=== PATIENT | female | born 1965 | race Caucasian/White ===

== ENCOUNTER 2017-05-20 16:16 | Inpatient (IN) | payer BC, SELFPAY ==
[2017-05-20] MEDS ORDERED: Midazolam HCl 5 mg/ml Vial ONE (16:47)
[2017-05-20] MEDS ORDERED: levETIRAcetam In NaCl (Iso-Os) 1,000 MG in Premix Bag 1 BAG IVPB ONE ×2 (17:15)
[2017-05-20 17:18] LABS: #Eosinphils 0.1 thou/uL (0.0-0.7); #Lymphocytes 3.1 thou/uL (1.20-3.40); #Monocytes 1.1 thou/uL (0.11-0.59); #Neutrophils 9.3 thou/uL (1.40-6.50); %Basophils 0.3 % (0.0-1.0); %Eosinophils 0.9 % (0.0-10.0); %Lymphocytes 22.9 % (21.0-51.0); %Monocytes 7.7 % (0.0-10.0); Hematocrit 42.1 % (36.0-47.0); Mean Platelet Volume 6.6 fL (7.4-10.4); Red Blood Cell (RBC) Count 4.71 mill/uL (4.20-5.40); White Blood Cell (WBC) Count 13.7 thou/uL (4.8-10.8)
[2017-05-20 17:42] LABS: ALT (SGPT) 18 U/L (8-55); AST (SGOT) 22 U/L (5-34); Alkaline Phosphatase 85 U/L (40-150); Anion Gap 24 mmol/L (10-20); BUN (Urea Nitrogen) 24 mg/dL (7.0-18.7); Bilirubin, Total 0.4 mg/dL (0.2-1.2); Calc. Creatinine Clearance 0 mL/min (70-130); Calcium 9.7 mg/dL (7.8-10.44); Carbon Dioxide 13 mmol/L (22-29); Chloride 94 mmol/L (98-107); Estimated GFR-MDRD 77; Globulin 3.5 g/dL (2.4-3.5); Lipase 27 U/L (8-78); Magnesium 2.1 mg/dL (1.6-2.6); Protein, Total 7.9 g/dL (6.0-8.3)
--- NOTE | 2017-05-20 17:46 | RAD ---
AP VIEW OF THE CHEST: 05/20/17 INDICATION: History of fall after a seizure. COMPARISON: None. FINDINGS: Lungs are clear. No pleural effusion or pneumothorax is evident. No acute osseous abnormality is pierre dent. IMPRESSION: No acute cardiopulmonary abnormality. POS: [facility]
[2017-05-20 17:47] LABS: Troponin I Less than 0.010 ng/mL (< 0.028)
--- NOTE | 2017-05-20 17:57 | CT ---
NONCONTRAST CT OF THE BRAIN: 05/20/17 INDICATION: History of seizures. COMPARISON: None. FINDINGS: No acute infarct, hemorrhage, or hydrocephalus present. Skull and extracranial soft tissues are with in normal limits. No midline shift is evident. IMPRESSION: No acute intracranial abnormality. POS: [facility]
[2017-05-20] MEDS ORDERED: Magnesium Sulfate 2 GM/100 ML BAG ONE (18:17)
[2017-05-20 18:20] LABS: Anion Gap 20 mmol/L (10-20); BUN (Urea Nitrogen) 24 mg/dL (7.0-18.7); Calc. Creatinine Clearance 0 mL/min (70-130); Calcium 9.6 mg/dL (7.8-10.44); Carbon Dioxide 18 mmol/L (22-29); Chloride 95 mmol/L (98-107); Estimated GFR-MDRD 89
[2017-05-20] MEDS ORDERED: Ketorolac Tromethamine 30 MG/ML VIAL ONE (18:46)
[2017-05-20] MEDS ORDERED: Diazepam 10 MG/2 ML SYRINGE ONE (18:46)
[2017-05-20 19:02] LABS: Bilirubin Negative (Negative); Blood, Urine Small (Negative); Glucose, Urine (Dipstick) Negative (Negative); Ketone, Urine Negative (Negative); Nitrite Negative (Negative); Protein, Urine (Dipstick) Negative (Neg-Trace); Urobilinogen 0.2 mg/dL (0.2-1.0)
[2017-05-20 19:13] LABS: Bacteria/HPF None Seen HPF (None Seen); Hyaline Casts/LPF 0-3 HYALINE CAST LPF (0-3 Hyaline); RBC/HPF 0-3 HPF (0-3); Squamous Epithelial 0-3 HPF (0-3); WBC/HPF 0-3 HPF (0-3)
[2017-05-20 19:25] LABS: Amphetamine Not Detected (NotDetected); Methadone Not Detected (NotDetected); Methamphetamine Not Detected (NotDetected)
[2017-05-20] MEDS ORDERED: Diazepam 10 MG/2 ML SYRINGE IVP PRN (19:59)
[2017-05-20 20:20] VITALS: BMI 18.7
[2017-05-20] MEDS ORDERED: traZODone HCl 150 MG TAB PO PRN (21:41)
[2017-05-20] MEDS ORDERED: Lorazepam 2 MG/ML VIAL SLOW IVP PRN (21:41)
[2017-05-20] MEDS ORDERED: cloNIDine HCl 0.1 MG TAB PO PRN (21:41)
[2017-05-20] MEDS ORDERED: Ondansetron HCl/PF 4 MG/2 ML Vial IVP PRN (21:41)
[2017-05-20] MEDS ORDERED: Acetaminophen 500 MG TAB PO PRN (21:41)
[2017-05-20] MEDS ORDERED: Ondansetron ODT 4 MG TAB PO PRN (21:41)
[2017-05-20] MEDS: Sodium Chloride 0.9% 1,000 ML IV SCH (22:26)
[2017-05-20] MEDS: traMADol HCl 50 MG TAB PO PRN (22:26)
[2017-05-20] MEDS: Ibuprofen 600 MG TAB PO PRN (22:28)
[2017-05-20] MEDS: Lorazepam 1 MG TAB PO SCH (22:30)
[2017-05-21] MEDS ORDERED: Sodium Chloride 0.9% 500 ML IV SCH (00:30)
[2017-05-21] MEDS: Lorazepam 1 MG TAB PO SCH ×5 (04:13→20:16)
[2017-05-21] MEDS: Ibuprofen 600 MG TAB PO PRN (04:14)
[2017-05-21] MEDS: traMADol HCl 50 MG TAB PO PRN (04:17)
[2017-05-21] MEDS: Sodium Chloride 0.9% 1,000 ML IV SCH ×3 (04:18→14:07)
[2017-05-21 05:16] LABS: ALT (SGPT) 15 U/L (8-55); AST (SGOT) 16 U/L (5-34); Alkaline Phosphatase 71 U/L (40-150); Anion Gap 12 mmol/L (10-20); BUN (Urea Nitrogen) 12 mg/dL (7.0-18.7); Bilirubin, Total 0.6 mg/dL (0.2-1.2); Calc. Creatinine Clearance 74 mL/min (70-130); Calcium 8.5 mg/dL (7.8-10.44); Carbon Dioxide 24 mmol/L (22-29); Chloride 105 mmol/L (98-107); Estimated GFR-MDRD Greater than 90; Globulin 2.6 g/dL (2.4-3.5); Magnesium 2.5 mg/dL (1.6-2.6); Protein, Total 6.4 g/dL (6.0-8.3)
[2017-05-21 05:24] LABS: Hematocrit 37.7 % (36.0-47.0); Mean Platelet Volume 6.5 fL (7.4-10.4); Neutrophil 78 % (42-75); Red Blood Cell (RBC) Count 4.22 mill/uL (4.20-5.40); White Blood Cell (WBC) Count 12.4 thou/uL (4.8-10.8)
--- NOTE | 2017-05-21 05:51 | HP ---
DATE OF ADMISSION: 05/20/2017 PRIMARY CARE PHYSICIAN: Lurdes Rueda MD CHIEF COMPLAINT: Seizures. HISTORY OF PRESENT ILLNESS: This is a 51-year-old female, who presented to [facility] Emergency Department after apparently sustaining 2 seizures lasting up to 90 sec onds with full body contortion and jerking movements. The history is obtained after review of the e mergency room records, discussions with the patient and her sister as well as the emergency room att ending. The patient apparently had been evaluated by her primary care provider and undergoing a slo w wean off of Klonopin after patient was noted to be taking potentially extra amounts of the medicat ion. The patient apparently had felt jittery with confusion, weakness, decreased appetite, some manoj sea, and extrapyramidal movements. Patient apparently suffered a seizure lasting up to approximatel y 90 seconds followed by loss of consciousness approximately [id number] on the date of admission. Vinicio ventura denies any prior history of seizure activity, alcohol use, illicit drug use, or exposure histo ry. The patient denied taking any illicit substances. Patient apparently has sustained a second se izure in the emergency room receiving IV Valium 15 mg as well as magnesium sulfate and 1000 mg of Ke ppra and Versed. The patient's seizure was resolved and the patient was postictal for several minut es. Prolactin level was initially drawn in the emergency room with a value of 90. Patient states a longstanding history of psychotropic medications and anxiety disorder treated by her primary care michele turner as well as a history of treatment by a local psychiatrist. The patient was transferred to [facility] Critical Care Unit for further evaluation and monitoring. PAST MEDICAL HISTORY: 1. Anxiety/depression. 2. Hypertension. PAST SURGICAL HISTORY: 1. Status post breast augmentation. 2. Status post benign cyst removal from the right breast. CURRENT MEDICATIONS: 1. Amlodipine 10 mg 1 tab p.o. daily. 2. Coreg 25 mg p.o. b.i.d. 3. Prozac 40 mg 1 tab p.o. daily. 4. Ibuprofen 600 mg p.o. q.6 hours p.r.n. 5. Valsartan 320 mg p.o. daily. 6. Wellbutrin-XL 300 mg p.o. daily. 7. Clonidine 0.1 mg p.o. b.i.d. 8. Tramadol 100 mg p.o. q.i.d. 9. Trazodone 150 mg one tab p.o. at bedtime. ALLERGIES: SULFA. FAMILY HISTORY: Father as a consequence of alcoholic cirrhosis complications. History of b reast cancer on her mother's side. SOCIAL HISTORY: The patient works as a nurse. No tobacco or alcohol use. The patient denies any i llicit drug use. The patient is accompanied by her sister in the hospital. REVIEW OF SYSTEMS: The following complete review of systems was negative, unless otherwise mentione d in the HPI or below: Constitutional: Weight loss or gain, ability to conduct usual activities. Skin: Rash, itching. Eyes: Double vision, pain. ENT/Mouth: Nose bleeding, neck stiffness, pain, tenderness. Cardiovascular: Palpitations, dyspnea on exertion, orthopnea. Respiratory: Shortness of breath, wheezing, cough, hemoptysis, fever or night sweats. Gastrointestinal: Poor appetite, abdominal pain, heartburn, nausea, vomiting, constipation, or diar dony. Genitourinary: Urgency, frequency, dysuria, nocturia. Musculoskeletal: Pain, swelling. Neurologic/Psychiatric: Anxiety, depression. Allergy/Immunologic: Skin rash, bleeding tendency. PHYSICAL EXAMINATION: VITAL SIGNS: On admission, blood pressure 124/90, pulse 105, respiratory rate 20, temperature 98.1 degrees Fahrenheit, O2 saturation 99% on room air. GENERAL APPEARANCE: This is a 51-year-old female, alert and oriented x2, responsive, in n o acute distress. HEENT: Pupils are equal, round, and reactive to light and accommodation. Extraocular muscles are i ntact. No scleral icterus, no conjunctival injection. Nares patent. OP is clear. Teeth in good r epair. NECK: Supple, no cervical adenopathy, no thyromegaly, no carotid bruits, no JVD appreciated. Cervi nasir spine with full active and passive range of motion. CHEST: Lungs are clear to auscultation bilaterally. CARDIOVASCULAR: S1, S2, without noted murmur. ABDOMEN: Rounded, soft, nontender, nondistended. Bowel sounds are positive in all four quadrants. There is no hepatosplenomegaly, no abdominal bruits, no rebound or guarding appreciated. EXTREMITIES: Warm and dry with good turgor. No clubbing, cyanosis or asymmetric edema appreciated. Pulses palpable distally at the dorsalis pedis, posterior tibial, and popliteal arteries bilateral ly. Capillary refill less than 2 seconds. NEUROLOGIC: Cranial nerves II through XII are grossly intact. No focal or lateralizing signs appre ciated. PERTINENT LABORATORY AND X-RAY FINDINGS: Sodium 129, potassium 3.7, chloride 95, CO2 of 18, BUN 24, creatinine 0.70, estimated GFR 89, glucose 118. Serum osmolality 277, calcium 9.6. LFTs within no rmal limits. Albumin 4.4. Prolactin level 90.3. CBC showed a white blood cell count of 13.7, hemo globin 14, hematocrit 42, platelet count 344 with normal differential. Urinalysis negative. Urine drug screen dated on 05/20/2017, positive for benzodiazepines. Portable chest x-ray dated on 2016 by my interpretation shows no acute cardiopulmonary process. CT of the brain without contrast dated on 05/20/2017 showed no acute intracranial process. EKG dated on 05/20/2017 by my interpretat ion shows a sinus mechanism with rates in the 90s. Normal R-wave progression noted in the precordia l leads. ST-T wave depression in leads V3 through V6. T-wave inversion noted in leads II, III, and F. ASSESSMENT AND PLAN: 1. Benzodiazepine withdrawal seizure. The patient will be admitted to the critical care unit. We will continue Ativan 1 mg p.o. q.4 h scheduled. Continue Keppra 500 mg IV q.12 hours. We will cons [facility] Neurology Service for any further recommendations and evaluation. Continue Ativan 2 mg IV every 15 minutes p.r.n. seizure activity. We will check TSH level in the a.m. 2. Anxiety/depression. We will resume home regimen to include Prozac 40 mg p.o. daily, Wellbutrin- XL 300 mg p.o. q.a.m. and monitor clinical response. The patient may an additional referral to [facility] psychiatry service for evaluation and medical management. 3. Hyponatremia, mild. Suspect syndrome of inappropriate antidiuretic hormone given patient's long standing use of selective serotonin reuptake inhibitors. Continue normal saline at 100 mL per hour and repeat sodium level in the a.m. 4. Hypokalemia, mild. Repeat potassium level at 3.7. Repeat potassium level after initial evaluat ion in the ER is 3.7. We will repeat potassium level in the a.m. 5. Hypertension. We will resume home antihypertensive regimen and monitor clinical response. 6. EKG changes with ST depression inferior and precordial leads. Suspect demand ischemia given pat britta's 2 seizures prior to presentation. No evidence to suggest acute coronary syndrome. Continue telemetry monitoring. 7. Prophylaxis. Sequential compression devices while in bed. Pepcid 20 mg p.o. b.i.d. Seizure pr ecautions. 8. Code status is FULL. Surrogate medical decision maker is patient's sister.
[2017-05-21] MEDS: Famotidine 20 MG TAB PO SCH ×2 (08:27→20:16)
[2017-05-21] MEDS: Bupropion 150 MG XL TAB PO SCH (08:27)
[2017-05-21] MEDS: FLUoxetine HCl 20 MG CAP PO SCH (08:28)
[2017-05-21] MEDS ORDERED: Carvedilol 25 MG TAB PO SCH (09:00)
[2017-05-21] MEDS ORDERED: cloNIDine HCl 0.1 MG TAB PO SCH (09:00)
[2017-05-21] MEDS ORDERED: Valsartan 80 MG TAB PO SCH (09:00)
[2017-05-21] MEDS ORDERED: Ketorolac Tromethamine 30 MG/ML VIAL IVP SCH (09:45)
--- NOTE | 2017-05-21 16:21 | CON ---
DATE OF CONSULTATION: 05/21/2017 HISTORY OF PRESENT ILLNESS: Lo Almanzar presented to the hospital with new onset of seizure s. She has multiple medical problems. It is well outlined including depression, anxiety, hypertension, bipolar disorder, probably schizophrenic. PREVIOUS SURGERIES: Including breast surgery augmentation, facial surgery. MEDICATIONS: Her medicine from home includes trazodone 150, tramadol 100, Catapres 0.1, Wellbutrin 300, valsartan 320, ibuprofen 600, Prozac 40, Coreg 25 b.i.d., felodipine 10. ALLERGIES: SULFA. SOCIAL AND FAMILY HISTORY: Denies smoking at this time. REVIEW OF SYSTEMS: Otherwise negative. PHYSICAL EXAMINAITON: VITAL SIGNS: Blood pressure 98/70, O2 saturation 100%, respirations 18. She is in no distress. NEUROLOGICAL: She is awake, alert, responsive, moves all 4 extremities. CHEST: No wheezing or crackles. CARDIAC: Normal S1, S2. No gallops. ABDOMEN: Soft. No masses. LABORATORY: White count 12,000, H\T\H 12 and 37, platelet count 265. Electrolytes normal. X-RAY FINDINGS: X-ray shows no acute infiltrates. CT of the head normal. IMPRESSION: 1. New onset seizures. 2. Multiple medicine. 3. Major anxiety, depression probably schizophrenic. 4. Diabetes. 5. Hypertension. PLAN: Await input from Neurology. She can probably be transferred out of the ICU. Pulmonary and Critical Care will follow at a distance when she was transferred to the ICU.
[2017-05-21] MEDS: Ketorolac Tromethamine 30 MG/ML VIAL IVP SCH ×2 (16:27→22:10)
--- NOTE | 2017-05-21 16:32 | PDOC.PN ---
- Subjective Encounter Start Date: 05/21/17 Encounter Start Time: 16:25 Subjective: f/u after benzo withdrawal seizure. No sz noted since admit. Feeling -: better overall. Mentally clearer but fatigued. - Objective Resuscitation Status: Resuscitation Status FULL:Full Resuscitation MAR Reviewed: Yes Vital Signs & Weight: Vital Signs (12 hours) Temp Pulse Resp BP Pulse Ox 05/21/17 14:13 18 105/68 05/21/17 11:05 98.3 F 89 18 128/85 97 05/21/17 10:30 98.3 F 89 18 05/21/17 08:00 98.5 F 99 18 Weight Weight 102 lb 4.712 oz Most Recent Monitor Data Heart Rate from ECG 90 NIBP 99/73 NIBP BP-Mean 90 Respiration from ECG 24 SpO2 96 I&O: 05/20/17 05/21/17 05/22/17 06:59 06:59 06:59 Intake Total 2182 914 Output Total 2100 925 Balance 82 -11 Result Diagrams: 05/21/17 04:01 05/21/17 04:01 Additional Labs: Microbiology 05/20/17 18:55 Urine voided Urine Culture - Preliminary NO GROWTH AT 24 HOURS Phys Exam - Physical Examination Constitutional: NAD HEENT: PERRLA, oral pharynx no lesions Neck: no JVD, supple Respiratory: no wheezing, clear to auscultation bilateral Cardiovascular: RRR Gastrointestinal: soft, non-tender, no distention, positive bowel sounds Musculoskeletal: no edema, pulses present Neurological: normal sensation, moves all 4 limbs Psychiatric: A&O x 3 Skin: normal turgor, cap refill <2 seconds Dx/Plan (1) Drug withdrawal seizure Code(s): F19.239 - OTH PSYCHOACTIVE SUBSTANCE DEPENDENCE WITH WITHDRAWAL, UNSP; R56.9 - UNSPECIFIED CONVULSIONS Status: Acute Comment: Stable currently, Neurology consult appreciated, started on Lamictal 100mg daily, continue low- dose benzodiazepine for care home use (2) Hyponatremia Code(s): E87.1 - HYPO-OSMOLALITY AND HYPONATREMIA Status: Acute Comment: Resolved, saline lock IVF's (3) Anxiety and depression Code(s): F41.8 - OTHER SPECIFIED ANXIETY DISORDERS Status: Acute Comment: Continue Prozac and Wellbutrin (4) Hypokalemia Code(s): E87.6 - HYPOKALEMIA Status: Acute Comment: mild, encourage increased po intake of regular diet (5) HTN (hypertension) Code(s): I10 - ESSENTIAL (PRIMARY) HYPERTENSION Status: Chronic Qualifiers: Hypertension type: essential hypertension Qualified Code(s): I10 - Essential (primary) hypertension Comment: Hold antihypertensive meds as pt has relative hypotension - Plan plan discussed w/ family, social media job titles, out of bed/ambulate, DVT proph w/SCDs Stable currently -: Continue Lamictal 100mg daily -: d/c Keppra -: Saline lock IVF -: Change Ativan 1mg po q6h * Likely home in am
--- NOTE | 2017-05-21 20:08 | CON ---
NEUROLOGY CONSULTATION CONSULTING PHYSICIAN: Hospitalist Service. DATE OF CONSULTATION: 05/21/2017 IMPRESSION: 1. Benzodiazepine withdrawal seizure. 2. Chronic anxiety. PLAN: 1. Discontinue Keppra. 2. Lamictal 100 mg daily. 3. Continue Klonopin 1 mg 3 times a day. 4. Follow up with an addiction psychiatrist. HISTORY OF PRESENT ILLNESS: Mr. Almanzar is a 51-year-old woman with a history of chronic anxiety and some attention deficit disorder. She has been treated with [id number] doses of benzodiaz epines for several years. Dr. Nixon has been trying to wean her off of medication. She was previo usly taking Paxil and Wellbutrin also and discontinue these about a week ago. Her sister reports th at as the weaning process has taken place, she has been showing some increasing agitation and restle ssness. She seemed to have periods of confusion that would wax and wane. She ran out of the Mobiscopeonop in altogether and subsequently had a generalized tonic clonic seizure. Her sister gave her some Tyesha ium that they have on hand and unfortunately, she had recurrent seizure after this. She had no type of aura prior to it, she was brought into the emergency room. Her CT of the brain was unremarkable . Laboratory studies were unremarkable. She was treated with both Valium and Versed as well as jose guadalupe ng loaded with 1000 mg of Keppra. PAST MEDICAL HISTORY: Otherwise, negative. ALLERGIES: None reported. SOCIAL HISTORY: No illicit drug use or alcohol use reported. FAMILY HISTORY: Noncontributory. REVIEW OF SYSTEMS: At this point, is without any particular complaints. PHYSICAL EXAMINATION: GENERAL: She is a well-nourished middle-aged woman lying in bed in no distress. VITAL SIGNS: Stable. She is afebrile. HEENT: Unremarkable. NEUROLOGIC: She is alert and appropriate. Her speech is fluent and clear. Her exam is nonfocal. There are no tremors or other agitation or restlessness present. SUMMARY: A middle-aged woman who had a withdrawal seizure secondary to abrupt withdrawal of her benoit zodiazepine due to the potential psychiatric, problems with Keppra I would switch her over to Lamict al.
[2017-05-21] MEDS: Carvedilol 25 MG TAB PO SCH (20:16)
[2017-05-21] MEDS: cloNIDine HCl 0.1 MG TAB PO SCH (20:16)
[2017-05-22] MEDS: Lorazepam 1 MG TAB PO SCH ×3 (01:58→12:53)
[2017-05-22] MEDS: Ketorolac Tromethamine 30 MG/ML VIAL IVP SCH ×3 (04:54→14:43)
[2017-05-22] MEDS: FLUoxetine HCl 20 MG CAP PO SCH (07:47)
[2017-05-22] MEDS: Famotidine 20 MG TAB PO SCH (07:47)
[2017-05-22] MEDS: Bupropion 150 MG XL TAB PO SCH (07:47)
[2017-05-22] MEDS: Carvedilol 25 MG TAB PO SCH (07:48)
[2017-05-22] MEDS: cloNIDine HCl 0.1 MG TAB PO SCH (07:48)
[2017-05-22] MEDS ORDERED: Valsartan 80 MG TAB PO SCH (09:00)
[2017-05-22] MEDS ORDERED: lamoTRIgine 100 MG TAB PO SCH (09:00)
[2017-05-22 11:38] VITALS: BP 108/72; TEMP 97.9
--- NOTE | 2017-05-22 15:14 | DIS ---
DATE OF ADMISSION: 05/20/2017 DATE OF DISCHARGE: 05/22/2017 DISCHARGE DIAGNOSES: 1. Benzodiazepine withdrawal seizure, resolved. 2. Anxiety/depression. 3. Hyponatremia, resolved. 4. Hypokalemia, resolved. 5. Hypertension, stable. CONSULTATION: Dr. Elizabeth with Neurology Service. PERTINENT LABORATORY DATA AND X-RAY FINDINGS: Sodium ranged between 128-138, potassium ranged betwe en 3.3-3.7, magnesium level ranged between 2.1-2.5. LFTs within normal limits. TSH 0.96. Prolacti n level 90.3. CBC showed white blood cell count ranging between 12.4-13.7. Urine drug screen dated 05/20/2017 positive for benzodiazepines. Urine culture dated 05/20/2017 showed no growth at [address] of the brain without contrast dated 05/20/2017 showed no acute intracranial process. Portab le chest x-ray dated 05/20/2017 showed no acute cardiopulmonary process. HOSPITAL COURSE: Patient was admitted after initially presenting with new onset seizures in the con text of benzodiazepine withdrawal. The patient was initially treated with IV Valium, Keppra, magnes ium sulfate, and Versed with resolution of seizure activity. The patient underwent extensive evalua tion including consultation with Neurology Service with recommendations to initiate Lamictal 100 mg daily after initial treatment with Keppra. The patient was also resumed on Ativan 1 mg q.4 hours. T he patient exhibited no recurrence of seizure activity during the hospital course and remained clini fior stable. The patient was noted with mild hyponatremia and hypokalemia, resolving with suppleme ntation. Overall, the patient remained clinically stable throughout the hospital course, tolerating regular oral intake, ambulatory without assistance or difficulty and ready for discharge on 017. DISCHARGE MEDICATIONS: 1. Klonopin 1 mg p.o. t.i.d. 2. Lamictal 100 mg 1 tablet p.o. daily. 3. Amlodipine 10 mg 1 tablet p.o. daily. 4. Coreg 25 mg p.o. b.i.d. 5. Prozac 40 mg 1 tablet p.o. daily. 6. Ibuprofen 600 mg p.o. q.6 hours p.r.n. 7. Valsartan 320 mg p.o. daily. 8. Wellbutrin-XL 300 mg p.o. daily. 9. Clonidine 0.1 mg p.o. b.i.d. p.r.n. 10. Tramadol 100 mg p.o. q.i.d. p.r.n. FOLLOWUP: Patient will follow up with Dr. Lurdes Rueda within 3 days of discharge. Patient will follow up with Dr. Lele Elizabeth with Neurology Service within 7 days of discharge. CONDITION ON DISCHARGE: Stable. ACTIVITY: Ad kari. DIET: Regular. SPECIAL INSTRUCTIONS: Recommend a slow wean off Klonopin with an approximate goal range of 0.5 mg b .i.d. Avoid abrupt benzodiazepine withdrawal. CODE STATUS: FULL. DISPOSITION: Home, 05/22/2017.
[2017-05-26] MEDS ORDERED: Ibuprofen 600 MG TAB PO PRN (16:00)
== END 2017-05-22 15:20 | disposition home or self-care (01) | DRG 897 ==
LOC: ERS 16:16 → CCU 19:52 → T4-A 05-21 10:36
PROVIDERS: ADMIT Family Medicine; ATTEND Family Medicine
DX: F13.239 Sedative, hypnotic or anxiolytic dependence with withdrawal, unspecified (principal); I24.8 Other forms of acute ischemic heart disease; R56.9 Unspecified convulsions; E87.1 Hypo-osmolality and hyponatremia; T42.4X5A Adverse effect of benzodiazepines, initial encounter; F41.8 Other specified anxiety disorders; F31.9 Bipolar disorder, unspecified; E87.6 Hypokalemia; I10 Essential (primary) hypertension; F98.8 Other specified behavioral and emotional disorders with onset usually occurring in childhood and adolescence
CPT/HCPCS: 36415; 70450; 71010; 80053; 80306; 81003; 81015; 82553; 83690; 83735; 83930; 83935; 84146; 84300; 84443; 84484; 85007; 85025; 85027; 87086; 93005; 96365; 96367; 96372; 96375; A4216; J1885; J1953; J2250; J3360; J3475; Q0162

== ENCOUNTER 2018-12-11 20:13 | Emergency (ER) | payer SELFPAY ==
[2018-12-11] MEDS ORDERED: Ondansetron ODT 4 MG TAB ONE (21:31)
[2018-12-11] MEDS ORDERED: HYDROcodone/Acetaminophen 10/325 mg Tablet ONE (21:31)
--- NOTE | 2018-12-11 22:11 | CT ---
HEAD CT WITHOUT IV CONTRAST 12/11/18 HISTORY: Head injury. FINDINGS: No focal mass or midline shift. No intra or extra-axial hemorrhage. Sinuses and mastoids are clear. IMPRESSION: No significant acute intracranial process. No mass or bleed. POS: [facility]
--- NOTE | 2018-12-11 22:15 | CT ---
CERVICAL SPINE CT SCAN WITHOUT IV CONTRAST: 12/11/18 HISTORY: Dizziness, head injury, injury from a fall. FINDINGS: Some generalized disc osteophytosis and facet arthrosis most marked at C5-C6. No evidence for acute f racture or facet dislocation. IMPRESSION: Spondylosis without acute fracture or facet dislocation. POS: [facility]
== END 2018-12-11 22:57 | disposition home or self-care (01) ==
LOC: ERS 20:13
DX: S06.0X0A Concussion without loss of consciousness, initial encounter (principal); S16.1XXA Strain of muscle, fascia and tendon at neck level, initial encounter; I10 Essential (primary) hypertension; F41.9 Anxiety disorder, unspecified; F32.9 Major depressive disorder, single episode, unspecified; Z79.899 Other long term (current) drug therapy; Z79.891 Long term (current) use of opiate analgesic; W01.10XA Fall on same level from slipping, tripping and stumbling with subsequent striking against unspecified object, initial encounter
CPT/HCPCS: 70450; 72125; Q0162

== ENCOUNTER 2019-08-30 13:26 | Outpatient (CLI) | payer OTHER ==
[2019-08-30 17:17] LABS: Hemoglobin 13.1 g/dL (12.0-16.0); Mean Corpuscular HGB CONC 33.1 g/dL (32.0-36.0); Mean Corpuscular Hemoglobin 29.7 pg (27.0-31.0); Mean Corpuscular Volume 89.9 fL (78.0-98.0); Mean Platelet Volume 7.5 fL (7.4-10.4); Platelet Count 263 thou/uL (130-400); RBC Distribution Width 11.4 % (11.5-14.5); Red Blood Cell (RBC) Count 4.42 mill/uL (4.20-5.40); White Blood Cell (WBC) Count 5.8 thou/uL (4.8-10.8)
[2019-08-30 17:23] LABS: PTT 28.5 SEC (22.9-36.1); Prothrombin Time 13.4 SEC (12.0-14.7)
[2019-08-30 17:41] LABS: Anion Gap 15 mmol/L (10-20); BUN (Urea Nitrogen) 13 mg/dL (9.8-20.1); Calc. Creatinine Clearance 0 mL/min (70-130); Calcium 9.4 mg/dL (7.8-10.44); Carbon Dioxide 25 mmol/L (22-29); Chloride 99 mmol/L (98-107); Estimated GFR-MDRD 73; Glucose 90 mg/dL (70-105); Potassium 3.3 mmol/L (3.5-5.1); Sodium 136 mmol/L (136-145)
== END 2019-08-30 13:27 | disposition home or self-care (01) ==
LOC: LABBT 13:26
PROVIDERS: ATTEND Surgery
DX: Z01.818 Encounter for other preprocedural examination (principal); M54.12 Radiculopathy, cervical region; M48.02 Spinal stenosis, cervical region
CPT/HCPCS: 80048; 85027; 85610; 85730; 93005; 93010

== ENCOUNTER 2019-09-03 06:26 | Day surgery (SDC) | payer OTHER ==
[2019-08-30 16:28] VITALS: BMI 21.9
[2019-09-03] MEDS ORDERED: Sodium Chloride 0.9% 10 ML ONE (06:41)
[2019-09-03] MEDS ORDERED: Thrombin 5000 UNITS/5 ML VIAL ONE (06:41)
[2019-09-03] MEDS ORDERED: Fentanyl 100 MCG/2 ML VIAL ONE ×4 (07:28→11:38)
[2019-09-03] MEDS ORDERED: Midazolam HCl 2 mg/2 ml Vial ONE (07:31)
[2019-09-03] MEDS ORDERED: PROPOFOL 200 MG/20 ML VIAL ONE (09:25)
[2019-09-03] MEDS ORDERED: Dexamethasone 20 MG/5 ML VIAL ONE (09:25)
[2019-09-03] MEDS ORDERED: Rocuronium Bromide 10 MG/ML (10ML VIAL) ONE (09:25)
[2019-09-03] MEDS ORDERED: Glycopyrrolate 0.2 MG/ML 5 ML SYRINGE ONE (09:25)
[2019-09-03] MEDS ORDERED: Ondansetron PF 4 MG/2 ML Vial ONE (09:25)
[2019-09-03] MEDS ORDERED: Lidocaine 1% PF 5 ML VIAL ONE (09:25)
[2019-09-03] MEDS ORDERED: HYDROmorphone 2 MG/ML VIAL SLOW IVP PRN (09:48)
[2019-09-03] MEDS ORDERED: Promethazine HCl 25 MG/ML VIAL IM PRN (09:48)
[2019-09-03] MEDS ORDERED: PACU-Morphine 4MG/ML VIAL SLOW IVP PRN (09:48)
[2019-09-03] MEDS ORDERED: Ondansetron HCl/PF 4 MG/2 ML Vial IVP PRN (09:48)
[2019-09-03] MEDS ORDERED: Morphine Sulfate 2 MG/ML SYRINGE SLOW IVP PRN (09:48)
[2019-09-03] MEDS ORDERED: Promethazine HCl 25 MG/ML VIAL SLOW IVP PRN (09:48)
[2019-09-03] MEDS ORDERED: Milk Of Magnesia 30 ML UDCUP PO PRN (10:32)
[2019-09-03] MEDS ORDERED: tiZANidine HCl 4 MG TAB PO PRN (10:32)
[2019-09-03] MEDS ORDERED: Ondansetron PF 4 MG/2 ML Vial IVP PRN (10:32)
[2019-09-03] MEDS ORDERED: HYDROcodone/Acetaminophen 7.5/325 mg Tablet PO PRN (10:32)
[2019-09-03] MEDS ORDERED: Bisacodyl 10 MG SUPP PR PRN (10:32)
[2019-09-03] MEDS ORDERED: traMADol HCl 50 MG TAB PO PRN (10:32)
[2019-09-03] MEDS ORDERED: Fleet Enema 133 ML BOT PR PRN (10:32)
[2019-09-03] MEDS ORDERED: Mag-Al 1200 mg/1200 mg/30 ML UDCUP PO PRN (10:32)
[2019-09-03] MEDS ORDERED: Morphine 2 MG/ML SYRINGE SLOW IVP PRN (10:32)
[2019-09-03] MEDS ORDERED: traZODone HCl 150 MG TAB PO PRN (10:35)
[2019-09-03] MEDS ORDERED: [UNRECOGNIZED DRUG - REMARK] FS PRN (10:48)
[2019-09-03] MEDS ORDERED: Polyethylene Glycol OPTH DROP 15 ML BOT EA EYE PRN (11:16)
--- NOTE | 2019-09-03 13:48 | OP ---
DATE OF PROCEDURE: 09/03/2019 LOCATION: OR 12. STAKE SETTER: Macey Sweet PA-C PREPROCEDURE DIAGNOSES: Neck and arm pain with cervical stenosis. POSTPROCEDURE DIAGNOSES: Neck and arm pain with cervical stenosis. PROCEDURES PERFORMED: 1. Anterior C5-C6 and C6-C7 diskectomies for decompression of spinal cord nerve roots. 2. Preparation of endplates with arthrodesis initiation by placement of interbody spacer packed local bone autograft obtained from same incision on allograft C5-C6, C6-C7. 3. Anterior cervical plate and screw fixation C5, C6, C7. 4. Use of operative microscope for microdissection. DESCRIPTION OF PROCEDURE: After informed consent was obtained from the patient, the patient was brought to the OR. Proper patient pause, and identification were carried out. A transverse crease incision was drawn out in the right side of the neck and this area was sterilely cleansed prepared and draped. Proper patient, pause, and identification were carried out. The wound was then opened with a combination of sharp, monopolar, and blunt dissection, and we proceeded lateral to the tracheoesophageal bundle, and medial to the right carotid sheath. We identified the prevertebral layer of deep cervical fascia and localization film confirmed area of interest. We then did distraction at C5-C6 and brought the microscope in and a diskectomy was performed at C5-C6, decompression of spinal cord nerve roots. Endplates prepared and interbody spacer in appropriate dimension was packed and placed. This released the distraction and then placed distraction at C6-C7 with diskectomy and decompression of spinal cord and C7 nerve roots and preparation of the endplates and interbody space was packed with graft and placed at C6-C7, arthrodesis initiation, microscope was removed. Copious irrigation occurred throughout as to maximize hemostasis. The plate was then secured to the front of the spine with final tightening, C5, C6, C7. We then closed the wound in anatomic layers following placement . Job ID: [id number]
[2019-09-03] MEDS ORDERED: hydrALAZINE 20 MG/ML VIAL SLOW IVP PRN (13:49)
[2019-09-03] MEDS ORDERED: Labetalol HCl 100 MG/20 ML VIAL SLOW IVP PRN (13:49)
[2019-09-03] MEDS: clonazePAM 1 MG TAB PO SCH ×2 (14:07→20:15)
[2019-09-03] MEDS: CEFAZOLIN 2 GM in Premix Bag 1 BAG IVPB SCH ×2 (14:08→23:22)
[2019-09-03] MEDS: Meperidine HCl/PF 25 MG/ML VIAL SLOW IVP PRN ×3 (15:59→21:41)
[2019-09-03] MEDS: Sodium Chloride 0.9% 1,000 ML IV SCH (16:36)
[2019-09-03] MEDS ORDERED: Diazepam 10 MG/2 ML SYRINGE IVP PRN (17:11)
[2019-09-03] MEDS: HYDROcodone/Acetaminophen 7.5/325 mg Tablet PO PRN ×2 (17:13→22:55)
[2019-09-03] MEDS: Diazepam 10 MG/2 ML SYRINGE IVP PRN (18:58)
[2019-09-03] MEDS: Promethazine HCl 12.5 MG in Sodium Chloride 0.9% 50 ML IVPB PRN (19:31)
[2019-09-03] MEDS: Carvedilol 25 MG TAB PO SCH (20:15)
[2019-09-04] MEDS: Meperidine HCl/PF 25 MG/ML VIAL SLOW IVP PRN ×4 (00:32→12:10)
[2019-09-04] MEDS: Sodium Chloride 0.9% 1,000 ML IV SCH ×3 (00:41→17:01)
[2019-09-04] MEDS: Diazepam 10 MG/2 ML SYRINGE IVP PRN ×4 (03:10→23:49)
[2019-09-04] MEDS: HYDROcodone/Acetaminophen 7.5/325 mg Tablet PO PRN ×5 (05:54→23:27)
[2019-09-04] MEDS: CEFAZOLIN 2 GM in Premix Bag 1 BAG IVPB SCH ×3 (05:55→23:19)
[2019-09-04] MEDS: Promethazine HCl 12.5 MG in Sodium Chloride 0.9% 50 ML IVPB PRN (09:07)
[2019-09-04] MEDS: clonazePAM 1 MG TAB PO SCH ×3 (09:11→19:59)
[2019-09-04] MEDS: Bupropion 150 MG XL TAB PO SCH (09:11)
[2019-09-04] MEDS: FLUoxetine HCl 20 MG CAP PO SCH (09:11)
[2019-09-04] MEDS: Losartan 25 MG TAB PO SCH (09:12)
[2019-09-04] MEDS: Carvedilol 25 MG TAB PO SCH ×2 (09:12→19:58)
--- NOTE | 2019-09-04 09:24 | PRG ---
DATE OF SERVICE: 09/04/2019 Ms. Almanzar has had pain issues overnight. We will increase the Valium. She feels as if "a truck hit her." Her drain output is 65 mL. She has not yet mobilized. We will work on that today. Potential dismissal tomorrow. Job ID: [id number]
[2019-09-05] MEDS: Sodium Chloride 0.9% 1,000 ML IV SCH ×2 (02:34→14:40)
[2019-09-05] MEDS: HYDROcodone/Acetaminophen 7.5/325 mg Tablet PO PRN ×4 (04:22→16:58)
[2019-09-05] MEDS: CEFAZOLIN 2 GM in Premix Bag 1 BAG IVPB SCH (06:02)
[2019-09-05] MEDS: Diazepam 10 MG/2 ML SYRINGE IVP PRN (07:16)
[2019-09-05] MEDS ORDERED: Diazepam 5 MG TAB PO PRN (07:29)
[2019-09-05] MEDS: Bupropion 150 MG XL TAB PO SCH (08:54)
[2019-09-05] MEDS: FLUoxetine HCl 20 MG CAP PO SCH (08:56)
[2019-09-05] MEDS: Carvedilol 25 MG TAB PO SCH (08:57)
[2019-09-05] MEDS: clonazePAM 1 MG TAB PO SCH ×2 (08:57→14:38)
[2019-09-05] MEDS: Losartan 25 MG TAB PO SCH (08:57)
--- NOTE | 2019-09-05 09:08 | PRG ---
DATE OF SERVICE: 09/05/2019 Ms. Almanzar is postoperative day #2 from C5 through C7 ACDF. The patient appears to be in better spirit this morning and states that her pain has been sufficiently controlled with her current medication regimen. She states that the Valium does well for her muscle spasms and her neck. She states that she was able to ambulate to the nurses station yesterday, and she is optimistic that she will be able to mobilize even further today. She has improved strength in her bilateral upper extremity myotomes compared to yesterday. Drain output overnight was 12 mL, 27 mL over the last 24 hours. She remains on Ancef. She states that she has been doing well with the full liquid diet and has had no choking episodes. She states that she would like to go home later this evening if her pain is controlled, otherwise tomorrow. I will reassess her later this afternoon to determine discharge plan. We will remove the drain prior to her discharge from the hospital. Job ID: [id number]
[2019-09-05] MEDS ORDERED: CEFAZOLIN 2 GM in Premix Bag 1 BAG IVPB SCH (14:00)
[2019-09-05 15:53] VITALS: BP 151/95; TEMP 99
--- NOTE | 2019-09-06 15:18 | EKG ---
Test Reason : STAT Blood Pressure : / mmHG Vent. Rate : 080 BPM Atrial Rate : 080 BPM P-R Int : 130 ms QRS Dur : 090 ms QT Int : 426 ms P-R-T Axes : 040 042 -71 degrees QTc Int : 491 ms Normal sinus rhythm Prolonged QT Abnormal ECG When compared with ECG of 30-AUG-2019 16:59, No significant change was found Confirmed by DR. Olu BIRMINGHAM ([id number]) on 09/06/2019 3:18:11 PM Referred By: Confirmed By:DR. Olu BIRMINGHAM
== END 2019-09-05 17:50 | disposition home or self-care (01) ==
LOC: SDC 06:26 → SURG A 10:36 → EEVIPCON 16:00 → SDC 09-05 17:50
PROVIDERS: ATTEND Surgery
PROC: 0RG20A0 Fusion of 2 or more Cervical Vertebral Joints with Interbody Fusion Device, Anterior Approach, Anterior Column, Open Approach (ICD-10-PCS; principal; 2019-09-03)
PROC: 0RB30ZZ Excision of Cervical Vertebral Disc, Open Approach (ICD-10-PCS; principal; 2019-09-03)
PROC: 0RG2070 Fusion of 2 or more Cervical Vertebral Joints with Autologous Tissue Substitute, Anterior Approach, Anterior Column, Open Approach (ICD-10-PCS; principal; 2019-09-03)
DX: M48.02 Spinal stenosis, cervical region (principal); M54.12 Radiculopathy, cervical region; Z79.899 Other long term (current) drug therapy; Z88.2 Allergy status to sulfonamides; Z88.5 Allergy status to narcotic agent; Z88.8 Allergy status to other drugs, medicaments and biological substances
CPT/HCPCS: 76000; 93005; 93010; C1776; J0360; J0690; J1100; J2001; J2175; J2250; J2270; J2405; J2550; J2704; J3010; J3360; J3490; L0174

== ENCOUNTER 2019-10-16 13:47 | Outpatient (CLI) | payer OTHER ==
--- NOTE | 2019-10-16 14:20 | RAD ---
Cervical spine 4 views: 10/16/2019 COMPARISON: 06/21/2019 HISTORY: Evaluate cervical spine following surgery, history of pain FINDINGS: Anterior discectomy and fusion hardware at C5-6/C6-7. Open-mouth odontoid view demonstrates a normal-appearing dens and C1-2 articulation. Alignment is normal at the cervicothoracic junction on the swimmer's lateral view. No prevertebral soft tissue swelling. No evidence for hardware failure . IMPRESSION: Postoperative changes as above. No acute osseous abnormality.
== END 2019-10-16 13:48 | disposition home or self-care (01) ==
LOC: TBSIIMAG 13:47
PROVIDERS: ATTEND Surgery
DX: M54.2 Cervicalgia (principal); Z98.890 Other specified postprocedural states
CPT/HCPCS: 72040

== ENCOUNTER 2020-05-18 14:16 | Outpatient (CLI) | payer OTHER ==
--- NOTE | 2020-05-18 14:34 | RAD ---
Left hand 3 views HISTORY: Joint pain. FINDINGS: Minimal joint space loss of the distal interphalangeal joints. Mild joint space narrowing, osteophytosis, and subchondral sclerosis at the first carpometacarpal joint. Mild lateral subluxation. No acute fracture, dislocation, or aggressive osseous erosions. IMPRESSION : Mild osteoarthritic changes, most pronounced at the first carpometacarpal joint. No evidence of infla mmatory arthritis.
--- NOTE | 2020-05-18 14:34 | RAD ---
Exam: XR Hand Rt 3 View STANDARD HISTORY: Right hand pain. COMPARISON: None FINDINGS: Mild osteoarthritis is seen involving the distal interphalangeal joint right index finger. No acute fracture, dislocation, or other acute osseous abnormality is identified. IMPRESSION: No acute osseous abnormality is identified.
== END 2020-05-18 14:17 | disposition home or self-care (01) ==
LOC: BICRAD 14:16
PROVIDERS: ATTEND Internal Medicine
DX: M79.641 Pain in right hand (principal); M79.642 Pain in left hand; M18.12 Unilateral primary osteoarthritis of first carpometacarpal joint, left hand

== ENCOUNTER 2022-01-18 13:22 | Outpatient (CLI) | payer BC | END 2022-01-18 13:23 | disposition home or self-care (01) | LOC: BICMAMMO 13:22 | PROVIDERS: ATTEND Family Medicine | DX: Z12.31 Encounter for screening mammogram for malignant neoplasm of breast (principal); Z98.82 Breast implant status; Z91.89 Other specified personal risk factors, not elsewhere classified | CPT/HCPCS: 77063; 77067 ==

== ENCOUNTER 2022-05-24 12:45 | Outpatient (CLI) | payer OTHER | END 2022-05-24 12:46 | disposition home or self-care (01) | LOC: RAD 12:45 | PROVIDERS: ATTEND Nurse Practitioner Family | DX: I50.32 Chronic diastolic (congestive) heart failure (principal) | CPT/HCPCS: 71046 ==

== ENCOUNTER 2022-07-29 14:30 | Outpatient (CLI) | payer OTHER | END 2022-07-29 14:31 | disposition home or self-care (01) | LOC: CTENTCT 14:30 | PROVIDERS: ATTEND Specialist | DX: J32.9 Chronic sinusitis, unspecified (principal) | CPT/HCPCS: 70486 ==

== ENCOUNTER 2022-08-15 13:08 | Emergency (ER) | payer OTHER ==
[2022-08-15 14:14] LABS: #Eosinphils 0.1 thou/uL (0.0-0.7); #Lymphocytes 1.6 thou/uL (1.20-3.40); #Monocytes 0.3 thou/uL (0.11-0.59); #Neutrophils 1.9 thou/uL (1.40-6.50); %Eosinophils 3.1 % (0.0-10.0); %Lymphocytes 40.3 % (21.0-51.0); %Neutrophils 47.7 % (42.0-75.0); Hemoglobin 13.2 g/dL (12.0-16.0); Mean Corpuscular HGB CONC 33.4 g/dL (32.0-36.0); Mean Corpuscular Hemoglobin 31.2 pg (27.0-31.0); Mean Corpuscular Volume 93.5 fl (78.0-98.0); Mean Platelet Volume 7.1 fL (7.4-10.4); Platelet Count 234 10x3/uL (130-400); RBC Distribution Width 11.2 % (11.5-14.5); Red Blood Cell (RBC) Count 4.23 mill/uL (4.20-5.40)
[2022-08-15 14:29] LABS: ALT (SGPT) 15 U/L (8-55); AST (SGOT) 17 U/L (5-34); Albumin 4.5 g/dL (3.5-5.0); Alkaline Phosphatase 68 U/L (40-110); Anion Gap 16 mmol/L (10-20); BUN (Urea Nitrogen) 10 mg/dL (9.8-20.1); Bilirubin, Total 0.4 mg/dL (0.2-1.2); Calc. Creatinine Clearance 0 mL/min (70-130); Calcium 9.6 mg/dL (7.8-10.44); Carbon Dioxide 24 mmol/L (22-29); Chloride 95 mmol/L (98-107); Estimated GFR 94; Globulin 2.5 g/dL (2.4-3.5); Glucose 92 mg/dL (70-105); Lipase 10 U/L (8-78); Potassium 3.3 mmol/L (3.5-5.1); Sodium 132 mmol/L (136-145)
[2022-08-15] MEDS ORDERED: Morphine 4 MG/ML VIAL ONE (18:04)
[2022-08-15] MEDS ORDERED: Ondansetron PF 4 MG/2 ML Vial ONE (18:04)
[2022-08-15] MEDS ORDERED: Ketorolac Tromethamine 30 MG/ML VIAL ONE (18:04)
== END 2022-08-15 19:11 | disposition home or self-care (01) ==
LOC: ERS 13:08
DX: S06.0X0A Concussion without loss of consciousness, initial encounter (principal); R07.89 Other chest pain; I10 Essential (primary) hypertension; W22.8XXA Striking against or struck by other objects, initial encounter; Y93.01 Activity, walking, marching and hiking; Y92.524 Gas station as the place of occurrence of the external cause; Z79.899 Other long term (current) drug therapy
CPT/HCPCS: 36415; 70450; 70486; 71045; 72125; 80053; 83690; 84484; 85025; 93005; 94760; 96374; 96375; J1885; J2270; J2405

== ENCOUNTER 2022-10-31 19:45 | Observation (INO) | payer OTHER ==
[2022-10-31 21:07] LABS: #Eosinphils 0.2 thou/uL (0.0-0.7); #Lymphocytes 1.4 thou/uL (1.20-3.40); #Monocytes 0.3 thou/uL (0.11-0.59); #Neutrophils 3.9 thou/uL (1.40-6.50); %Basophils 0.4 % (0.0-1.0); %Lymphocytes 24.5 % (21.0-51.0); %Monocytes 4.7 % (0.0-10.0); %Neutrophils 67.4 % (42.0-75.0); Hemoglobin 12.8 g/dL (12.0-16.0); Mean Corpuscular HGB CONC 33.1 g/dL (32.0-36.0); Mean Corpuscular Volume 93.7 fl (78.0-98.0); Mean Platelet Volume 7.5 fL (7.4-10.4); Platelet Count 229 10x3/uL (130-400); RBC Distribution Width 11.5 % (11.5-14.5); Red Blood Cell (RBC) Count 4.11 mill/uL (4.20-5.40); White Blood Cell (WBC) Count 5.8 10x3/uL (4.8-10.8)
[2022-10-31 21:21] LABS: PTT 30.8 sec (22.9-36.1)
[2022-10-31] MEDS ORDERED: Aspirin Chewable 81 MG TAB ONE (21:53)
[2022-10-31] MEDS ORDERED: Acetaminophen 500 MG TAB ONE (21:53)
[2022-10-31 22:15] LABS: Albumin 4.5 g/dL (3.5-5.0)
[2022-10-31 22:16] LABS: Chloride 98 mmol/L (98-107); Potassium 3.3 mmol/L (3.5-5.1); Sodium 132 mmol/L (136-145)
[2022-10-31 22:17] LABS: Globulin 2.4 g/dL (2.4-3.5); Glucose 98 mg/dL (70-105); Protein, Total 6.9 g/dL (6.0-8.3)
[2022-10-31 22:18] LABS: Carbon Dioxide 25 mmol/L (22-29)
[2022-10-31 22:19] LABS: Anion Gap 12 mmol/L (10-20); Bilirubin, Total 0.3 mg/dL (0.2-1.2)
[2022-10-31 22:20] LABS: Alkaline Phosphatase 73 U/L (40-110); Calc. Creatinine Clearance 0 mL/min (70-130); Estimated GFR 89
[2022-10-31 22:21] LABS: BUN (Urea Nitrogen) 15 mg/dL (9.8-20.1)
[2022-10-31 22:22] LABS: AST (SGOT) 23 U/L (5-34)
[2022-10-31 22:23] LABS: ALT (SGPT) 21 U/L (8-55)
[2022-10-31] MEDS ORDERED: traZODone HCl 150 MG TAB PO PRN (22:58)
[2022-10-31] MEDS ORDERED: clonazePAM 0.5 MG TAB PO PRN (22:58)
[2022-10-31] MEDS ORDERED: Acetaminophen 325 MG TAB PO PRN (23:02)
[2022-10-31] MEDS ORDERED: Ondansetron ODT 4 MG TAB PO PRN (23:02)
[2022-11-01 00:20] LABS: Troponin I Less than 0.010 ng/mL (< 0.028)
[2022-11-01] MEDS ORDERED: Lactated Ringer's 500 ML IV SCH (00:30)
[2022-11-01] MEDS ORDERED: Acetaminophen 325 MG TAB ONE (03:12)
[2022-11-01 03:28] LABS: Troponin I Less than 0.010 ng/mL (< 0.028)
[2022-11-01 04:30] LABS: #Eosinphils 0.1 thou/uL (0.0-0.7); #Lymphocytes 1.9 thou/uL (1.20-3.40); #Monocytes 0.3 thou/uL (0.11-0.59); #Neutrophils 4.5 thou/uL (1.40-6.50); %Basophils 0.7 % (0.0-1.0); %Eosinophils 1.5 % (0.0-10.0); %Lymphocytes 27.5 % (21.0-51.0); %Monocytes 4.7 % (0.0-10.0); %Neutrophils 65.6 % (42.0-75.0); Hemoglobin 12.4 g/dL (12.0-16.0); Mean Corpuscular Hemoglobin 31.3 pg (27.0-31.0); Mean Corpuscular Volume 92.1 fl (78.0-98.0); Platelet Count 223 10x3/uL (130-400); RBC Distribution Width 11.4 % (11.5-14.5); Red Blood Cell (RBC) Count 3.97 mill/uL (4.20-5.40); White Blood Cell (WBC) Count 6.8 10x3/uL (4.8-10.8)
[2022-11-01 04:51] LABS: Anion Gap 16 mmol/L (10-20); BUN (Urea Nitrogen) 13 mg/dL (9.8-20.1); Calc. Creatinine Clearance 0 mL/min (70-130); Calcium 9.3 mg/dL (7.8-10.44); Carbon Dioxide 23 mmol/L (22-29); Cardiac Risk 2.8 (Less than 4.5); Chloride 97 mmol/L (98-107); Cholesterol 236 mg/dl (< 200 Desired); Estimated GFR 92; Glucose 85 mg/dL (70-105); HDL Cholesterol 83 mg/dL (>60 Neg Risk); LDL Cholesterol, Calculated 144 mg/dL; Potassium 3.4 mmol/L (3.5-5.1); Sodium 133 mmol/L (136-145); Triglycerides 46 mg/dL (Less than 150)
[2022-11-01] MEDS ORDERED: Carvedilol 25 MG TAB PO SCH (09:00)
[2022-11-01] MEDS ORDERED: FLUoxetine HCl 20 MG CAP PO SCH (09:00)
[2022-11-01] MEDS ORDERED: Spironolactone 25 MG TAB PO SCH (09:00)
[2022-11-01] MEDS ORDERED: Bupropion 150 MG XL TAB PO SCH (09:00)
[2022-11-01] MEDS ORDERED: Electrolyte Replacement Protocol 1 EACH FS SCH (11:00)
[2022-11-01] MEDS ORDERED: Potassium Chloride 20 MEQ TAB PO SCH (12:15)
[2022-11-01 12:32] LABS: PTT 27.2 sec (22.9-36.1)
[2022-11-01 12:35] LABS: D-Dimer Test Less than 0.27 *mcg/mL (0.27-0.43)
[2022-11-01 12:39] LABS: Protein C Activity 110 % (78-152)
[2022-11-01 12:51] LABS: Thyroid Stimulating Hormone 3.6371 uIU/mL (0.35-4.94)
[2022-11-01 12:55] LABS: Homocysteine 4.17 umol/L (5.08-15.39)
[2022-11-01] MEDS ORDERED: Ibuprofen 800 MG TAB PO SCH (13:15)
[2022-11-01 13:34] VITALS: BMI 17.9
[2022-11-01 16:09] VITALS: BP 132/77; TEMP 97.4
[2022-11-01 18:41] LABS: Potassium 3.8 mmol/L (3.5-5.1)
[2022-11-01] MEDS ORDERED: Sacubitril 49 MG/Valsartan 51 MG TABLET PO SCH (21:00)
[2022-11-01] MEDS ORDERED: Atorvastatin Calcium 40 MG TAB PO SCH (21:00)
[2022-11-02] MEDS ORDERED: Aspirin 81 mg Enteric Coated Tablet PO SCH (09:00)
[2022-11-03 12:04] LABS: HEX PHOS LA Tube 1 44.2 SEC; HEX PHOS LA Tube 2 42.6 SEC; Hexagonal Phospholipid Neut 1.6 SEC (0-8.0)
[2022-11-03 12:05] LABS: Factor VIII Test 94.9 % ACTIVE (56-157)
[2022-11-03 12:09] LABS: Cardiolipin IgA Ab 0.8 APL-U/mL (<14 Negative); Cardiolipin IgG Ab 1.4 GPL-U/mL (<10 Negative); Cardiolipin IgM Ab 1.5 MPL-U/mL (<10 Negative); EliA APS New Method **** NEW METHOD ****
== END 2022-11-01 19:30 | disposition home or self-care (01) ==
LOC: ERS 19:45 → ERHOLD 22:23 → NEURO 11-01 11:32
PROVIDERS: ADMIT Student in an Organized Health Care Education/Training Program; ATTEND Student in an Organized Health Care Education/Training Program
DX: G45.9 Transient cerebral ischemic attack, unspecified (principal); I11.0 Hypertensive heart disease with heart failure; I50.20 Unspecified systolic (congestive) heart failure; E78.5 Hyperlipidemia, unspecified; G43.909 Migraine, unspecified, not intractable, without status migrainosus; F41.8 Other specified anxiety disorders; G47.00 Insomnia, unspecified; Z79.899 Other long term (current) drug therapy; Z88.2 Allergy status to sulfonamides; Z88.5 Allergy status to narcotic agent; Z88.8 Allergy status to other drugs, medicaments and biological substances
CPT/HCPCS: 70450; 70551; 80048; 80053; 80061; 83036; 83090; 84132; 84443; 84484 ×3; 85025 ×2; 85240; 85300; 85303; 85305; 85307; 85379; 85598; 85610 ×2; 85730 ×2; 86147; 93005; 93880; 99285; G0378 ×3; 36415; J7120

== ENCOUNTER 2022-11-07 10:59 | Emergency (ER) | payer OTHER ==
[2022-11-07] MEDS ORDERED: Clopidogrel Bisulfate 75 MG TAB ONE (11:38)
[2022-11-07] MEDS ORDERED: Aspirin Chewable 81 MG TAB ONE (11:38)
[2022-11-07 12:50] LABS: Bilirubin Negative (Negative); Blood, Urine Negative (Negative); Clarity Clear (Clear); Glucose, Urine (Dipstick) Normal (Negative); Ketone, Urine Negative (Negative); Leukocyte Negative Leu/uL (Negative); Nitrite Negative (Negative); Protein, Urine (Dipstick) Negative (Neg-Trace); Specific Gravity, Urine 1.006 (1.002-1.036); Urobilinogen Normal mg/dL (Less than 2)
[2022-11-07 12:58] LABS: Amphetamine Not Detected (NotDetected); Barbiturates Screen Not Detected (NotDetected); Benzodiazepine Screen Not Detected (NotDetected); Cocaine Metabolite Screen Not Detected (NotDetected); Methadone Not Detected (NotDetected); Methamphetamine Not Detected (NotDetected); Opiate Screen Detected (NotDetected); Oxycodone Screen Not Detected (NotDetected); Phencyclidine (PCP) Not Detected (NotDetected); THC/Cannabinoid Screen Detected (NotDetected); Tricyclic Screen Not Detected (NotDetected)
[2022-11-07 13:31] LABS: INR-International Normal Ratio 1.1; PTT 27.2 sec (22.9-36.1); Prothrombin Time 14.8 sec (12.0-14.7)
[2022-11-07 13:50] LABS: #Basophils 0.1 thou/uL (0.0-0.2); #Eosinphils 0.2 thou/uL (0.0-0.7); #Lymphocytes 1.4 thou/uL (1.20-3.40); #Monocytes 0.3 thou/uL (0.11-0.59); #Neutrophils 3.5 thou/uL (1.40-6.50); %Basophils 1.2 % (0.0-1.0); %Lymphocytes 25.2 % (21.0-51.0); %Monocytes 5.8 % (0.0-10.0); %Neutrophils 63.8 % (42.0-75.0); Hemoglobin 13.2 g/dL (12.0-16.0); Mean Corpuscular HGB CONC 33.2 g/dL (32.0-36.0); Mean Corpuscular Hemoglobin 30.9 pg (27.0-31.0); Mean Corpuscular Volume 93.1 fl (78.0-98.0); Mean Platelet Volume 7.8 fL (7.4-10.4); Platelet Count 209 10x3/uL (130-400); RBC Distribution Width 11.4 % (11.5-14.5); Red Blood Cell (RBC) Count 4.28 mill/uL (4.20-5.40); White Blood Cell (WBC) Count 5.5 10x3/uL (4.8-10.8)
[2022-11-07 14:25] LABS: ALT (SGPT) 26 U/L (8-55); AST (SGOT) 22 U/L (5-34); Albumin 4.9 g/dL (3.5-5.0); Alkaline Phosphatase 78 U/L (40-110); Anion Gap 10 mmol/L (10-20); BUN (Urea Nitrogen) 12 mg/dL (9.8-20.1); Bilirubin, Total 0.2 mg/dL (0.2-1.2); CK (CPK) 66 U/L (29-168); Calc. Creatinine Clearance 0 mL/min (70-130); Calcium 8.5 mg/dL (7.8-10.44); Carbon Dioxide 26 mmol/L (22-29); Chloride 105 mmol/L (98-107); Estimated GFR 93; Globulin 2.5 g/dL (2.4-3.5); Glucose 88 mg/dL (70-105); Lipase 33 U/L (8-78); Potassium 3.3 mmol/L (3.5-5.1); Protein, Total 7.4 g/dL (6.0-8.3); Sodium 138 mmol/L (136-145)
[2022-11-07 14:26] LABS: Acetaminophen Less than 10.0 mcg/mL (10.0-30.0); Alcohol Less than 10 mg/dL (Less than 10); Salicylate Less than 8.0 mg/dL (15.0-30.0)
== END 2022-11-07 15:36 | disposition home or self-care (01) ==
LOC: ERS 10:59
DX: F12.90 Cannabis use, unspecified, uncomplicated (principal); I11.0 Hypertensive heart disease with heart failure; I50.30 Unspecified diastolic (congestive) heart failure; Z86.73 Personal history of transient ischemic attack (TIA), and cerebral infarction without residual deficits; Z79.899 Other long term (current) drug therapy; Z79.82 Long term (current) use of aspirin
CPT/HCPCS: 36415; 70450; 71045; 80053; 80306; 80307; 81003; 82140; 82550; 83690; 84484; 85025; 85610; 85730; 93005; 94760

== ENCOUNTER 2024-04-18 10:47 | Outpatient (CLI) | payer OTHER | END 2024-04-18 10:48 | disposition home or self-care (01) | LOC: BICMAMMO 10:47 | PROVIDERS: ATTEND Family Medicine | DX: Z12.31 Encounter for screening mammogram for malignant neoplasm of breast (principal); Z98.82 Breast implant status; Z91.89 Other specified personal risk factors, not elsewhere classified | CPT/HCPCS: 77063; 77067 ==